=== PATIENT | male | born 1985 | race Caucasian/White ===

== ENCOUNTER 2023-08-19 01:17 | Inpatient (IN) | payer MEDICARE, OTHER ==
--- NOTE | 2023-08-19 03:11 | ED ---
General Adult HPI - General Chief complaint: Psychiatric Symptoms Stated complaint: Petition Time Seen by Provider: 08/19/23 02:45 Source: patient, police Mode of arrival: ambulatory Limitations: no limitations - History of Present Illness Initial comments: Dictation was produced using Examify dictation software. please excuse any grammatical, word or spelling errors. Chief Complaint: 38-year-old male presents with suicidal behavior History of Present Illness: Patient is a 38-year-old male states that he was brought here because he had an argument with his mother. According to petition documentation patient had a gun in his lap and made some remarks making mother concerned of suicidal ideation. Patient states that he is dealing with a lot of personal issues at the moment. Denies any physical complaints. The ROS documented in this emergency department record has been reviewed and confirmed by me. Those systems with pertinent positive or negative responses have been documented in the HPI. All other systems are other negative and/or noncontributory. - Related Data Allergies Allergy/AdvReac Type Severity Reaction Status Date / Time acetaminophen [From [place]] Allergy Unknown Verified 08/19/23 01:25 hydrocodone [From [place]] Allergy Unknown Verified 08/19/23 01:25 sulfamethoxazole Allergy Diarrhea Verified 08/19/23 01:25 [From B[place]] trimethoprim [From [place]] Allergy Diarrhea Verified 08/19/23 01:25 Review of Systems ROS Statement: Those systems with pertinent positive or pertinent negative responses have been documented in the HPI. ROS Other: All systems not noted in ROS Statement are negative. Past Medical History Past Medical History: No Reported History History of Any Multi-Drug Resistant Organisms: None Reported Past Surgical History: Back Surgery, Hernia Repair Additional Past Surgical History / Comment(s): abscess, spinal fusion Past Psychological History: No Psychological Hx Reported Smoking Status: Current every day smoker Past Alcohol Use History: Occasional Past Drug Use History: None Reported General Exam - General Exam Comments Initial Comments: General: Well-appearing, nontoxic, no acute distress. Head: Normocephalic, atraumatic Eyes: PERRLA, EOMI ENT: Airway patent Chest: Nonlabored breathing Skin: No visual rash, normal skin tone Neuro: Alert and oriented 3 Musculoskeletal: No gross abnormalities Limitations: no limitations Course Vital Signs 08/19/23 01:26 Temperature 97.9 F Pulse Rate 106 H Respiratory 16 Rate Blood Pressure 110/71 O2 Sat by Pulse 97 Oximetry Medical Decision Making - Medical Decision Making Was pt. sent in by a medical professional or institution (, [facility], [facility]OE COBBLER, urgent care, hospital, or fpc...) When possible be specific @ -No Did you speak to anyone other than the patient for history (EMS, parent, family, police, friend...)? What history was obtained from this source @ -Petition documentation was reviewed Did you review nursing and triage notes (agree or disagree)? Why? @ -I reviewed and agree with nursing and triage notes Were old charts reviewed (outside hosp., previous admission, EMS record, old EKG, old radiological studies, urgent care reports/EKG's, fpc records)? Report findings @ -No old charts were reviewed Differential Diagnosis (chest pain, altered mental status, abdominal pain women, abdominal pain men, vaginal bleeding, musculoskeletal, weakness, fever, dyspnea, syncope, headache, dizziness, GI bleed, back pain, seizure, CVA, palpatations, mental health)? @ -Differential Mental Health: Depression, anxiety, bipolar, psychosis, schizophrenia, borderline personality, situational depression, adjustment disorder, behavioral disorder, brain tumor, malingering, substance abuse, encephalopathy, medication reaction, dementia, hypothyroidism, degenerative neurologic disorder, lupus.... This is not meant to be all-inclusive list EKG interpreted by me (3pts min.). @ -None done X-rays interpreted by me (1pt min.). @ -None done CT interpreted by me (1pt min.). @ -None done U/S interpreted by me (1pt. min.). @ -None done What testing was considered but not performed or refused? (CT, X-rays, U/S, labs)? Why? @ -None What meds were considered but not given or refused? Why? @ -None Did you discuss the management of the patient with other professionals (professionals i.e. [facility], SH[facility] COB[facility]ER, lab, RT, psych nurse, social media job titles, pharmaceutical plant operator, teacher, corporate ethics officer, returned case inspector)? Give summary @ -No Was smoking cessation discussed for >3mins.? @ -No Was critical care preformed (if so, how long)? @ -No Were there social determinants of health that impacted care today? How? (Homelessness, low income, unemployed, alcoholism, drug addiction, transportation, low edu. Level, literacy, decrease access to med. care, retirement, rehab)? @ -No Was there de-escalation of care discussed even if they declined (Discuss DNR or withdrawal of care, Hospice)? DNR status @ -No What co-morbidities impacted this encounter? (DM, HTN, Smoking, COPD, CAD, Cancer, CVA, ARF, Chemo, Hep., AIDS, mental health diagnosis, sleep apnea, morbid obesity)? @ -None Was patient admitted / discharged? Hospital course, mention meds given and route, prescriptions, significant lab abnormalities, going to OR and other pertinent info. @ -38-year-old male presents emergency department for behavior concerning for self-harm. Vital signs stable. Patient is well-appearing at the bedside patient has no medical complaints. Patient medically cleared for EPS evaluation. Evaluated by EPS will admit patient to inpatient psych. Undiagnosed new problem with uncertain prognosis? @ -No Drug Therapy requiring intensive monitoring for toxicity (Heparin, Nitro, Insulin, Cardizem)? @ -No Were any procedures done? @ -No Diagnosis/symptom? Acute, or Chronic, or Acute on Chronic? Uncomplicated (without systemic symptoms) or Complicated (systemic symptoms)? @ -Suicidal behavior Side effects of treatment? @ -No Exacerbation, Progression, or Severe Exacerbation? @ -No Poses a threat to life or bodily function? How? (Chest pain, USA, OR, pneumonia, PE, COPD, DKA, ARF, appy, cholecystitis, CVA, Diverticulitis, Homicidal, Suicid al, threat to staff... and all critical care pts) @ -yes - Lab Data Lab Results 08/19/23 Range/Units 04:20 Influenza Type A (PCR) Not Detected (Not Detectd) Influenza Type B (PCR) Not Detected (Not Detectd) RSV (PCR) Not Detected (Not Detectd) SARS-CoV-2 (PCR) Not Detected (Not Detectd) Disposition Clinical Impression: Suicidal behavior Disposition: ADMITTED IP TO THIS HOSP Condition: Fair Referrals: Blanco Prado DO [Primary Care Provider] - 1-2 days Decision Time: 06:16
[2023-08-19] MEDS ORDERED: MAGNESIUM HYDROXIDE 2,400 MG/30 ML CUP PO PRN (08:06)
[2023-08-19] MEDS ORDERED: MAG HYDROX/AL HYDROX/SIMETH 355 ML BOTTLE PO PRN (08:06)
[2023-08-19] MEDS ORDERED: haloperidoL 5 MG TAB PO PRN (08:09)
[2023-08-19] MEDS ORDERED: HALOPERIDOL LACTATE 5 MG/ML 1 ML VIAL IM PRN (08:09)
[2023-08-19] MEDS ORDERED: LORazepam 2 MG/ML INJ IM PRN (08:10)
[2023-08-19] MEDS: NICOTINE 14MG/24HR PATCH TRANSDERM SCH (10:01)
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
[2023-08-19] MEDS: FLUoxetine HCL 20 MG CAP PO SCH (13:40)
[2023-08-19 17:07] LABS: Appearance,Urine Clear (Clear); Bilirubin,Urine Negative (Negative); Blood,Urine Negative (Negative); Color,Urine Yellow; Glucose,Urine (UA) Negative (Negative); Ketones,Urine Negative (Negative); Leukocyte Esterase,Urine Negative (Negative); Mucus,Urine Many /hpf; Nitrite,Urine Negative (Negative); PH, Urine 6.5 (5.0-8.0); Protein,Urine 1+ (Negative); WBC,Urine 1 /hpf (0-5)
[2023-08-19] MEDS: OLANZapine 2.5 MG TAB PO SCH (21:46)
[2023-08-19 22:37] LABS: Amphetamine Screen,Urine Not Detected (NotDetected); Barbiturate Screen,Urine Not Detected (NotDetected); Benzodiazepines Screen,Urine Not Detected (NotDetected); Cocaine Screen,Urine Detected (NotDetected); Methadone Screen, Urine Not Detected (NotDetected); Opiate Screen,Urine Not Detected (NotDetected); Oxycodone Screen, Urine Not Detected (NotDetected); Phencyclidine Screen,Urine Not Detected (NotDetected); Tricyclic Antidepressant,Urine Not Detected (NotDetected); Urn Cannabinoid Scrn Detected (NotDetected)
[2023-08-20 10:42] LABS: Basophils % (A) 1 %; Eosinophils # (A) 0.2 k/uL (0-0.7); Eosinophils % (A) 3 %; HCT 44.2 % (39.0-53.0); HGB 14.2 gm/dL (13.0-17.5); Lymphocytes # (A) 1.9 k/uL (1.0-4.8); Lymphocytes % (A) 24 %; MCH 31.3 pg (25.0-35.0); MCV 97.9 fL (80.0-100.0); Mean Platelet Volume 7.4; Monocytes # (A) 0.6 k/uL (0-1.0); Monocytes % (A) 7 %; Neutrophils # (A) 5.4 k/uL (1.3-7.7); Neutrophils % (A) 65 %; Platelet Count 304 k/uL (150-450); RBC 4.52 m/uL (4.30-5.90); RDW 13.2 % (11.5-15.5); WBC 8.3 k/uL (3.8-10.6)
[2023-08-20 10:53] LABS: ALT 12 U/L (4-49); AST 20 U/L (17-59); African American GFR (CKD) >90 (>60 ml/min/1.73 sqM); Alkaline Phosphatase 76 U/L (38-126); Anion Gap 5 mmol/L; Blood Urea Nitrogen 22 mg/dL (9-20); Calcium 9.3 mg/dL (8.4-10.2); Carbon Dioxide 32 mmol/L (22-30); Chloride 105 mmol/L (98-107); Glucose 84 mg/dL (74-99); Non-African American GFR(CKD) >90 (>60 ml/min/1.73 sqM); Potassium 4.4 mmol/L (3.5-5.1); Sodium 142 mmol/L (137-145); Total Bilirubin 0.6 mg/dL (0.2-1.3); Total Protein 6.3 g/dL (6.3-8.2)
--- NOTE | 2023-08-20 11:28 | P.PN ---
Progress Note - Text Progress Note Date: 08/20/23 Interval History: Patient was seen in his room and was directable and agreeable to speak with wr iter at the bedside. Patient states he is doing fine today. He was seen sleeping in bed, easily woken up for todays interview. He stated that he slept only 2-3 hrs last night. and that his appetite is good. He has been compliant with his medications, and agreeable with the court process. We will await the finance attorney to come for the patient to sign a deferral. Patient offered no complaints. At this time patient denies any suicidal or homicidal ideations, intent or plan. Patient denies any auditory, visual hallucinations and denies any paranoia or delusions. Patient denies any side effects from the medications. MENTAL STATUS EXAM: General Appearance: Patient appears to be stated age is alert, thin, less irritable, directable, and attempts to cooperate. Patient appears to have poor hygiene and grooming. Patient is wearing a hospital gown Behavior: Patient is seated without any agitated behavior. More directable today. Speech: Patient's speech is [fluent and nonpressured. Tangential, mildly improving Mood/Affect: Patient reports their mood is fine, affect is congruent and constricted. Suicidality/Homicidality: Patient denies having any homicidal ideation intent or plan. Denies any suicidal ideations intent or plan Perceptions: Patient denies any visual hallucinations and denies any auditory hallucinations Though content/process: There is no evidence of any delusional thought content and thought process is linear and goal-directed. Memory and concentration: AOX3, grossly intact for the purposes of this session. Judgment and insight: Poor/impulsive, improving mildly IMPRESSIONS: mood disorder, unspecified cocaine use disorder hallucinogen use disorder Nicotine dependance Cannabis use disorder PLAN: -Patient is admitted under involuntary status to MHU for stabilization of psychiatric symptoms and safety. Patient has not signed adult voluntary form or a medication consent and is placed in patient's chart. -Medications : increase Prozac 40mg daily for mood/anxiety, increase Zyprexa 5mg po qhs for psychosis/mood stabilization, -Ativan and Haldol PRN for agitation/aggression -NRT -nicotine patch -SW on board for discharge planning. Encourage patient to participate in groups to work on coping skills. Will await deferral and court date. Likely discharge next week if patient defers, will offer rehab if patient is interested.
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
[2023-08-20] MEDS: OLANZapine 5 MG TAB PO SCH (22:06)
[2023-08-20] MEDS: LORazepam 1 MG TAB PO PRN (22:07)
[2023-08-21] MEDS: FLUoxetine HCL 20 MG CAP PO SCH (09:16)
--- NOTE | 2023-08-21 17:38 | P.PN ---
Progress Note - Text Progress Note Date: 08/21/23 Interval History: Patient was seen in his room and was directable and agreeable to speak with wr iter at the bedside. He reports agreement to be continued on medications he is taking currently but expresses disinterest in continuing them outpatient. Discussed the impact of medications on mental health and provided psychoeducation. Patient appeared to reflect on this and said that he is more amenable to continuing the medication outpatient. He denies any concerns about the medications but that finds that they have not been helpful yet. Discussed the importance of compliance of medication along with Therapy, in which patient is interested. He reports having good sleep and appetite. However, he describes that he has been feeling more disturbed due to conversation with his girlfriend was been trying to quit using cocaine. Discussed outpatient resources including [facility] [place] of mental illness, support groups for substance use disorders, and considering rehab for both him and his girlfriend. Patient expressed interest in attending outpatient services for substance use disorders. He was also agreeable with being initiated on thiamine, given his long history of abusing alcohol. At this time patient denies any suicidal or homicidal ideations, intent or plan. Patient denies any auditory, visual hallucinations and denies any paranoia or delusions. Patient denies any side effects from the medications. MENTAL STATUS EXAM: General Appearance: Patient appears to be stated age is alert, thin, directable, and attempts to cooperate. Patient appears to have fair hygiene and grooming. Behavior: Patient is seated without any agitated behavior. More directable today. Speech: Patient's speech is fluent and nonpressured. Mood/Affect: Patient reports their mood is fine, affect is congruent and constricted. Suicidality/Homicidality: Patient denies having any homicidal ideation intent or plan. Denies any suicidal ideations intent or plan Perceptions: Patient denies any visual hallucinations and denies any auditory hallucinations Though content/process: There is no evidence of any delusional thought content and thought process is linear and goal-directed. Memory and concentration: AOX3, grossly intact for the purposes of this session. Judgment and insight: Poor/impulsive, improving mildly IMPRESSIONS: Substance-induced mood disorder with comorbid substance use disorder (polysubstance) cocaine use disorder hallucinogen use disorder Nicotine dependance Cannabis use disorder Alcohol use disorder PLAN: -Patient is admitted under involuntary status to MHU for stabilization of psychiatric symptoms and safety. Patient has not signed adult voluntary form or a medication consent and is placed in patient's chart. -Medications : Prozac 40mg daily for mood/anxiety, Zyprexa 5mg po qhs for psychosis/mood stabilization - Vitamin replacement - Provide resources for RADHA & dual diagnosis -Ativan and Haldol PRN for agitation/aggression -NRT -nicotine patch -SW on board for discharge planning. Encourage patient to participate in groups to work on coping skills. Will await deferral and court date. Likely discharge next week if patient defers, will offer rehab if patient is interested.
[2023-08-21] MEDS: NICOTINE GUM (POLACRILEX) 2 MG GUM BUCCAL PRN (20:45)
[2023-08-22] MEDS: THIAMINE 100 MG TAB PO SCH (08:57)
--- NOTE | 2023-08-22 13:12 | P.PN ---
Progress Note - Text Progress Note Date: 08/22/23 Interval History: Patient was seen in the interview room and was directable and agreeable to speak with promotion writer at the bedside. He states that he spoke with aunt who reminded him of his father and he became sad over this. Otherwise, he reports that his mood has improved. He endorses good appetite but reports that he has trouble falling asleep. He admits that sleep has been a long-term issue for him and had been on Restoril in the past but found that to be ineffective. He says that he has also been tried on Elavil but felt he was very groggy while on this. He was agreeable with changing Zyprexa to Seroquel. He denies other concerns and reports improvement in his condition today. He is agreeable to considering outpatient resources for substance use disorders. At this time patient denies any suicidal or homicidal ideations, intent or plan. Patient denies any auditory, visual hallucinations and denies any paranoia or delusions. Patient denies any side effects from the medications. MENTAL STATUS EXAM: General Appearance: Patient appears to be stated age is alert, thin, directable, and attempts to cooperate. Patient appears to have fair hygiene and grooming. Behavior: Patient is seated without any agitated behavior. More directable today. Speech: Patient's speech is fluent and nonpressured. Mood/Affect: Patient reports their mood is fine, affect is congruent and constricted. Suicidality/Homicidality: Patient denies having any homicidal ideation intent or plan. Denies any suicidal ideations intent or plan Perceptions: Patient denies any visual hallucinations and denies any auditory hallucinations Though content/process: There is no evidence of any delusional thought content and thought process is linear and goal-directed. Memory and concentration: AOX3, grossly intact for the purposes of this session. Judgment and insight: Poor/impulsive, improving mildly IMPRESSIONS: Substance-induced mood disorder with comorbid substance use disorder (polysubstance) cocaine use disorder hallucinogen use disorder Nicotine dependance Cannabis use disorder Alcohol use disorder PLAN: -Patient is admitted under involuntary status to [facility] for stabilization of psychiatric symptoms and safety. Patient has not signed adult voluntary form or a medication consent and is placed in patient's chart. -Medications : Prozac 40mg daily for mood/anxiety, change Zyprexa to Seroquel 50 mg at bedtime for mood augmentation and sleep - Vitamin replacement given history of severe alcohol use - Provide resources for RADHA & dual diagnosis -Ativan and Haldol PRN for agitation/aggression -NRT -nicotine patch -SW on board for discharge planning. Encourage patient to participate in groups to work on coping skills. Will await deferral and court date. Likely discharge next week if patient defers, will offer rehab if patient is interested.
[2023-08-22] MEDS: QUEtiapine 50 MG TAB PO SCH (21:51)
--- NOTE | 2023-08-23 11:23 | P.PN ---
Progress Note - Text Progress Note Date: 08/23/23 Interval History: Patient was seen in his room and was directable and agreeable to speak with wr iter at the bedside. Patient states he is doing fine today. Patient continues to lack insight, and need for treatment, and has poor judgment. He claims it is his girlfriend that has a problem with drugs, not himself. Currently refusing rehab. He has been compliant with his medications, and agreeable with the court process. We will await the counselling psychologist to come today for the patient to sign a deferral. Patient states the seroquel makes him feel "high", will switch back to the Zyprexa. Patient agreeable, and offers no other complaints. At this time patient denies any suicidal or homicidal ideations, intent or plan. Patient denies any auditory, visual hallucinations and denies any paranoia or delusions. Patient denies any side effects from the medications. MENTAL STATUS EXAM: General Appearance: Patient appears to be stated age is alert, thin, less irritable, directable, and attempts to cooperate. Patient appears to have poor hygiene and grooming. Patient is wearing a hospital gown Behavior: Patient is seated without any agitated behavior. More directable today. Speech: Patient's speech is [fluent and nonpressured. Mood/Affect: Patient reports their mood is fine, affect is congruent and constricted. Suicidality/Homicidality: Patient denies having any homicidal ideation intent or plan. Denies any suicidal ideations intent or plan Perceptions: Patient denies any visual hallucinations and denies any auditory hallucinations Though content/process: There is no evidence of any delusional thought content and thought process is linear Memory and concentration: AOX3, grossly intact for the purposes of this session. Judgment and insight: Poor/impulsive, improving mildly IMPRESSIONS: mood disorder, unspecified cocaine use disorder hallucinogen use disorder Nicotine dependance Cannabis use disorder PLAN: -Patient is admitted under involuntary status to [facility] for stabilization of psychiatric symptoms and safety. Patient has not signed adult voluntary form or a medication consent and is placed in patient's chart. -Medications : Prozac 40mg daily for mood/anxiety, d/c seroquel, add Zyprexa 5mg po qhs for psychosis/mood stabilization -Ativan and Haldol PRN for agitation/aggression -NRT - nicotine patch -SW on board for discharge planning. Encourage patient to participate in groups to work on coping skills. Deferral is today. Full hearing is 7/3, if patient does not defer, patient is refusing rehab.
[2023-08-23] MEDS: OLANZapine 5 MG TAB PO SCH (20:41)
[2023-08-24 07:19] VITALS: RESP 16
[2023-08-24] MEDS: IBUPROFEN 600 MG TAB PO PRN (11:52)
--- NOTE | 2023-08-24 13:08 | P.PN ---
Progress Note - Text Progress Note Date: 08/24/23 Interval History: Patient was seen in his room and was directable and agreeable to speak with wr iter at the bedside. Patient states he is doing fine today. Patient did not defer with his director emergency services, however, they are coming back tomorrow or to give him the option to again. He has been compliant with his medications, and agreeable with the court process. Patient claims to have problems sleeping at night, and he claims his appetite is improving. Patient states that his back is hurting from the uncomfortable chairs, and offers no other complaints. At this time patient denies any suicidal or homicidal ideations, intent or plan. Patient denies any auditory, visual hallucinations and denies any paranoia or delusions. Patient denies any side effects from the medications. MENTAL STATUS EXAM: General Appearance: Patient appears to be stated age is alert, thin, directable, and attempts to cooperate. Patient appears to have poor hygiene and grooming. Patient is wearing casual clothing Behavior: Patient is seated without any agitated behavior. More directable today. Speech: Patient's speech is [fluent and nonpressured. Mood/Affect: Patient reports their mood is fine, affect is congruent and constricted. mildly improving Suicidality/Homicidality: Patient denies having any homicidal ideation intent or plan. Denies any suicidal ideations intent or plan Perceptions: Patient denies any visual hallucinations and denies any auditory hallucinations Though content/process: There is no evidence of any delusional thought content and thought process is linear Memory and concentration: AOX3, grossly intact for the purposes of this session. Judgment and insight: Poor/impulsive, improving mildly IMPRESSIONS: mood disorder, unspecified cocaine use disorder hallucinogen use disorder Nicotine dependance Cannabis use disorder PLAN: -Patient is admitted under involuntary status to [facility] for stabilization of psychiatric symptoms and safety. Patient has not signed adult voluntary form or a medication consent and is placed in patient's chart. -Medications : Prozac 40mg daily for mood/anxiety, increase Zyprexa 10mg po qhs for psychosis/mood stabilization -Ativan and Haldol PRN for agitation/aggression -NRT - nicotine patch -SW on board for discharge planning. Encourage patient to participate in groups to work on coping skills. Full hearing is 7/3, if patient does not defer, patient is refusing rehab.
[2023-08-24 13:39] VITALS: BMI 16.9
[2023-08-24] MEDS: traMADol 50 MG TAB PO STA (15:43)
[2023-08-24] MEDS: OLANZapine 10 MG TAB PO SCH (21:50)
--- NOTE | 2023-08-25 11:17 | P.PN ---
Progress Note - Text Progress Note Date: 08/25/23 Interval History: Patient was seen in his room and was directable and agreeable to speak with wr iter at the bedside. Patient states he is doing fine today. Patient did defer with his securities attorney this morning. He has been compliant with his medications. Patient claims to have problems sleeping at night, and he claims his appetite is improving. Patient complains of back pain, due to the chairs being uncomfortable, but has relief with pain medication, and offers no other complaints. Patient focused on discharge. States he wants to go home before his disability check goes to the bank, because his girlfriend has his debit card, and a drug problem. At this time patient denies any suicidal or homicidal ideations, intent or plan. Patient denies any auditory, visual hallucinations and denies any paranoia or delusions. Patient denies any side effects from the medications. MENTAL STATUS EXAM: General Appearance: Patient appears to be stated age is alert, thin, directable, and attempts to cooperate. Patient appears to have poor hygiene and grooming. Patient is wearing casual clothing Behavior: Patient is seated without any agitated behavior. More directable today. Speech: Patient's speech is [fluent and nonpressured. Mood/Affect: Patient reports their mood is fine, affect is congruent and constricted. mildly improving Suicidality/Homicidality: Patient denies having any homicidal ideation intent or plan. Denies any suicidal ideations intent or plan Perceptions: Patient denies any visual hallucinations and denies any auditory hallucinations Though content/process: There is no evidence of any delusional thought content and thought process is linear Memory and concentration: AOX3, grossly intact for the purposes of this session. Judgment and insight: Poor/impulsive, improving mildly IMPRESSIONS: mood disorder, unspecified cocaine use disorder hallucinogen use disorder Nicotine dependance Cannabis use disorder PLAN: -Patient is admitted under involuntary status to [facility] for stabilization of psychiatric symptoms and safety. Patient has not signed adult voluntary form or a medication consent and is placed in patient's chart. -Medications : Prozac 40mg daily for mood/anxiety, Zyprexa 10mg po qhs for psychosis/mood stabilization -Ativan and Haldol PRN for agitation/aggression -NRT - nicotine patch -SW on board for discharge planning. Encourage patient to participate in groups to work on coping skills. Patient deferred with his securities attorney on 08/24. Patient is refusing rehab. Likely discharge Wednesday, MARTINE to help assist with coordinating discharge to brothers or cousins house, ensure that guns/weapons are secured or removed.
--- NOTE | 2023-08-26 11:31 | P.PN ---
Progress Note - Text Progress Note Date: 08/26/23 Interval History: Patient was seen in the ngo and was directable and agreeable to speak with wr iter in the office. Patient states he is doing good today. Patient did defer with his commercial attorney . He has been compliant with his medications. Patient claims to have slept very good last night. He states his appetite is good. Patient focused on discharge. States he wants to go home before his disability check goes to the bank, because his girlfriend has his debit card, and a drug problem. At this time patient denies any suicidal or homicidal ideations, intent or plan. Patient denies any auditory, visual hallucinations and denies any paranoia or delusions. Patient denies any side effects from the medications. MENTAL STATUS EXAM: General Appearance: Patient appears to be stated age is alert, thin, directable, and attempts to cooperate. Patient appears to have poor hygiene and grooming. Patient is wearing casual clothing Behavior: Patient is seated without any agitated behavior. More directable today. Speech: Patient's speech is fluent and nonpressured. Mood/Affect: Patient reports their mood is fine, affect is congruent and constricted. mildly improving Suicidality/Homicidality: Patient denies having any homicidal ideation intent or plan. Denies any suicidal ideations intent or plan Perceptions: Patient denies any visual hallucinations and denies any auditory hallucinations Though content/process: There is no evidence of any delusional thought content and thought process is linear Memory and concentration: AOX3, grossly intact for the purposes of this session. Judgment and insight: Poor/impulsive, improving mildly IMPRESSIONS: mood disorder, unspecified cocaine use disorder hallucinogen use disorder Nicotine dependance Cannabis use disorder PLAN: -Patient is admitted under involuntary status to [facility] for stabilization of psychiatric symptoms and safety. Patient has not signed adult voluntary form or a medication consent and is placed in patient's chart. -Medications : Prozac 40mg daily for mood/anxiety, Zyprexa 10mg po qhs for psychosis/mood stabilization -Ativan and Haldol PRN for agitation/aggression -NRT - nicotine patch -SW on board for discharge planning. Encourage patient to participate in groups to work on coping skills. Patient deferred with his commercial attorney on 08/24. Patient is refusing rehab. discharge Wednesday, SW to help assist with coordinating discharge to brothers or cousins house, ensure that guns/weapons are secured or removed.
[2023-08-27 06:17] VITALS: BP 161/90; PULSE 51; TEMP 96.9
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
== END 2023-08-27 10:50 | disposition home or self-care (01) | DRG 897 ==
LOC: EC 01:17 → 3MHU 08:03
PROVIDERS: ADMIT Psychiatry & Neurology Psychiatry; ATTEND Psychiatry & Neurology Psychiatry
DX: F19.14 Other psychoactive substance abuse with psychoactive substance-induced mood disorder (principal); F31.9 Bipolar disorder, unspecified; F60.3 Borderline personality disorder; Z88.1 Allergy status to other antibiotic agents; Z88.5 Allergy status to narcotic agent; Z88.2 Allergy status to sulfonamides; Z98.1 Arthrodesis status; Z79.899 Other long term (current) drug therapy; F16.10 Hallucinogen abuse, uncomplicated; F14.10 Cocaine abuse, uncomplicated; F12.10 Cannabis abuse, uncomplicated; Z87.19 Personal history of other diseases of the digestive system
CPT/HCPCS: 80053; 80306; 81001; 82075; 83036; 84443; 85025; 87636; 99285